=== PATIENT | male | born 1960 | race Caucasian/White ===

== ENCOUNTER 2017-08-07 08:18 | Inpatient (IN) ==
[2017-08-04 16:31] LABS: Appearance,Urine CLEAR; Bilirubin,Urine NEG (NEG); Color,Urine YELLOW; Glucose,Urine (UA) NEGATIVE (NEG); Leukocyte Esterase,Urine NEG /uL (NEG); Protein,Urine NEG (NEG); Specific Gravity,Urine 1.023 (1.000-1.035); Urine Blood NEG mg/dL (<0.03); Urobilinogen,Urine NEG (NEG)
[2017-08-04 17:22] LABS: Basophils # (Auto) 0 K/mcL (0.0-0.3); Basophils % (Auto) 0.4 % (0.0-2.0); Blood Urea Nitrogen 18 mg/dl (6-20); Eosinophils # (Auto) 0.1 K/mcL (0.0-0.7); Granulocytes % (Auto) 61.5 % (38.0-78.0); Lymphocytes # (Auto) 1.8 K/mcL (1.5-4.8); Lymphocytes % (Auto) 28.3 % (15.5-49.0); Mean Cell Volume 90.8 fL (80.0-100.0); Mean Corpuscular HGB Conc 34.1 g/dL (31.0-36.0); Mean Corpuscular Hemoglobin 30.9 pg (26.0-34.0); Monocytes # (Auto) 0.5 K/mcL (0.1-0.9); Monocytes % (Auto) 7.8 % (1.0-12.0); Platelet Count 221 K/mcL (140-440); RBC 4.88 M/mcL (4.50-5.90); Red Cell Distribution Width 13.6 % (11.5-14.5)
[~2017-08-07 08:18] MED LIST: CELECOXIB 200 MG CAPSULE PO SCH; IPRATROPIUM/ALBUTEROL 3 ML AMPUL.NEB NEB PRN; PREGABALIN 75 MG CAPSULE PO SCH; SCOPOLAMINE 1 PATCH PATCH TOPICAL PRN; ceFAZolin 1 GM VIAL IV SCH; oxyCODONE 10 MG TAB.ER.12H PO SCH
[2017-08-07] MEDS ORDERED: KETAMINE 10 MG/ML ML ONE (12:24)
[2017-08-07] MEDS ORDERED: LIDOCAINE HCL/PF 100 MG/5 ML SYRINGE IV ONE (12:24)
[2017-08-07] MEDS ORDERED: MIDAZOLAM 5 MG/5 ML VIAL ONE (12:24)
[2017-08-07] MEDS ORDERED: KETOROLAC 30 MG/ML VIAL ONE (12:24)
[2017-08-07] MEDS ORDERED: ePHEDrine 50 MG/ML AMPUL IV ONE (12:24)
[2017-08-07] MEDS ORDERED: GLYCOPYRROLATE 0.2 MG/ML VIAL IV ONE (12:24)
[2017-08-07] MEDS ORDERED: DEXAMETHASONE 10 MG/ML VIAL ONE (12:24)
[2017-08-07] MEDS ORDERED: ONDANSETRON 4 MG/2 ML VIAL ONE (12:24)
[2017-08-07] MEDS ORDERED: PROPOFOL 200 MG/20 ML VIAL IV ONE (12:24)
[2017-08-07] MEDS ORDERED: PHENYLEPHRINE 10 MG/ML VIAL ONE (12:24)
[2017-08-07] MEDS ORDERED: KETOROLAC 30 MG, ROPIVACAINE HCL/PF 49.5 ML, EPINEPHrine 0.5 MG, 0.9 % SODIUM CHLORIDE ... IJ ONE (12:43)
[2017-08-07] MEDS ORDERED: GENTAMICIN SULFATE 800 MG/20 ML VIAL IR ONE (12:57)
[2017-08-07] MEDS ORDERED: METHOCARBAMOL 1,000 MG/10 ML VIAL IV PRN (13:07)
[2017-08-07] MEDS ORDERED: FLUMAZENIL 0.1 MG/ML ML IV PRN (13:07)
[2017-08-07] MEDS ORDERED: fentaNYL 100 MCG/2 ML VIAL IV PRN (13:07)
[2017-08-07] MEDS ORDERED: MEPERIDINE 25 MG/ML SYRINGE IV PRN (13:07)
[2017-08-07] MEDS ORDERED: LACTATED RINGERS 250 ML IV PRN (13:07)
[2017-08-07] MEDS ORDERED: IPRATROPIUM/ALBUTEROL 3 ML AMPUL.NEB NEB PRN (13:07)
[2017-08-07] MEDS ORDERED: ONDANSETRON 4 MG/2 ML VIAL IV PRN ×2 (13:07→13:58)
[2017-08-07] MEDS ORDERED: NALOXONE HCL 0.4 MG/ML VIAL IV PRN (13:07)
[2017-08-07] MEDS ORDERED: BENZOCAINE/MENTHOL 1 LOZENGE PO PRN ×2 (13:07→13:58)
[2017-08-07] MEDS ORDERED: ACETAMINOPHEN 1,000 MG/100 ML BOTTLE IV ONE (13:07)
[2017-08-07] MEDS ORDERED: LACTATED RINGERS 1,000 ML IV SCH (13:15)
[2017-08-07] MEDS ORDERED: traMADol 50 MG TABLET PO PRN (13:57)
--- NOTE | 2017-08-07 13:57 | Brief Operative Note ---
Date of procedure: 08/07/17 Pre-op diagnosis: right knee instability s/p tka Post-op diagnosis: same Procedure: right knee debridement, polyethylene liner exchange Grafts/Implants: Yes Anesthesia: spinal Complications: none Surgeon: Duke Daigle Spragger: Jessenia Meeks Tourniquet Time (Minutes): 43 Specimens Removed/Pathology: none sent Condition: stable Disposition: PACU
[2017-08-07] MEDS ORDERED: BISACODYL 10 MG SUPP.RECT PR PRN (13:58)
[2017-08-07] MEDS ORDERED: POLYETHYLENE GLYCOL 3350 17 GM PACKET PO PRN (13:58)
[2017-08-07] MEDS ORDERED: FLEETS ADULT ENEMA PR PRN (13:58)
[2017-08-07] MEDS ORDERED: ONDANSETRON ODT 4 MG TABLET SL PRN (13:58)
[2017-08-07] MEDS ORDERED: MAGNESIUM HYDROXIDE 30 ML ORAL.SUSP PO PRN (13:58)
[2017-08-07] MEDS ORDERED: TRANEXAMIC ACID 1,000 MG/10 ML VIAL IV SCH (13:58)
[2017-08-07] MEDS: oxyCODONE/APAP 5/325MG TABLET PO PRN ×2 (16:39→21:03)
[2017-08-07] MEDS: METHOCARBAMOL 750 MG TABLET PO PRN ×2 (16:39→23:27)
[2017-08-07] MEDS: 0.9 % SODIUM CHLORIDE 1,000 ML IV SCH ×2 (17:05→17:54)
[2017-08-07] MEDS: 0.9 % SODIUM CHLORIDE 10 ML SYRINGE IV SCH ×2 (17:05→21:14)
[2017-08-07] MEDS: KETOROLAC 30 MG/ML VIAL IV SCH (17:55)
[2017-08-07] MEDS ORDERED: SENNOSIDES 1 TABLET PO SCH (21:00)
[2017-08-07] MEDS: DOCUSATE SODIUM 100 MG CAPSULE PO SCH (21:03)
[2017-08-07] MEDS: ASPIRIN 325 MG ENTERIC COATED TABLET PO SCH (21:03)
[2017-08-07] MEDS: ceFAZolin 1 GM VIAL IV SCH (21:09)
[2017-08-08] MEDS: KETOROLAC 30 MG/ML VIAL IV SCH ×3 (00:02→11:10)
[2017-08-08] MEDS: 0.9 % SODIUM CHLORIDE 1,000 ML IV SCH ×2 (01:50→06:02)
[2017-08-08] MEDS: oxyCODONE/APAP 5/325MG TABLET PO PRN ×2 (01:54→07:50)
[2017-08-08] MEDS: ceFAZolin 1 GM VIAL IV SCH (03:22)
[2017-08-08] MEDS: 0.9 % SODIUM CHLORIDE 10 ML SYRINGE IV SCH (06:01)
[2017-08-08] MEDS: METHOCARBAMOL 750 MG TABLET PO PRN (06:24)
--- NOTE | 2017-08-08 07:13 | Discharge Summary ---
Providers - Providers Patient information: Note initiated : 08/08/17 at 7:11 am Service Date, if different from initiated Date: [] Patient: Eh Flores 56 y/o M admitted on 08/07/17 for Knee Liner Exchange Poss Revision components. Chief Complaint: [POD #1 s/p right polyliner exchange Patient doing well this morning, reports mild knee pain. Ambulated okay. Denies CP, SOB, numbness, tingling or calf pain. Has no questions or concerns.] Discharge date: 08/08/17 Hospitalization Hospital course: Patient brought to OR yesterday for polyliner exchange of right knee without complication. He was admitted overnight for observation and pain control. His stay was without event. He will d/c to home today and follow up in office in 10- 14 days for post op appointment. Discharge diagnosis: knee instability Exam - Exam Incision healing: Yes Incision draining: No Incision red: No Incision swollen: No Incision inflamed: No Clean and dry: Yes Weight bearing status: as tolerated Range of motion: 0 deg ext/40 deg flex. Full ankle/feet AROM Ortho Discharge - TKA - Patient Instructions Diet: Regular Diet Activity: activity as tolerated, ambulate with assistive device, weight bearing as tolerated Total Knee Protocol: For Total Knee: Start ROM ISRAEL with stationary bike or rocking chair. Work on gaining full extension of knee. Posterior dislocation precautions provided. Hip abductor strengthening and gait training instructions provided. Apply Cryocuff as instructed. Dressing Care: Aquacel Ag - leave on for 5 days Additional Instructions: Do the exercises at home that physical therapy gave you. Weight bearing as tolerated. Activity as tolerated. Use your walker whenever you are up. Take your prescription, photo ID, insurance cards, and current medication list with you to your first physical therapy appointment. Wear comfortable clothing for your physical therapy. Consider premedicating with pain medication 45 minutes prior to physical therapy appointment. Take your prescription to machine pecan picker any medication or equipment (such as walker, crutches, toilet riser or C.P.M.) If you have Dermabond (a waterproof dressing with a mesh-like appearance), leave open to air. You may start showering on post op day #2, which is Monday, August 09. The Dermabond dressing can get wet, do not scrub dressing. Do not use soap, lotions , or creams over the top of the dressing. Do not soak in tub or spa. Pat dry. To avoid constipation while taking any narcotic pain medication, take an over the counter stool softener/laxative. Use your Cryocuff or ice packs as directed, on for 20 minutes at a time throughout the day. This and elevation will help with pain and swelling. Call your physician for fevers above 100.5 or pain not controlled by medication. Your prescriptions are with your discharge information. Some medications were electronically transmitted to your pharmacy of choice. - Follow Up Plan Follow Up Appointments: Duke Daigle MD [Physician] - Disposition: Home, Self-Care Prognosis: Fair Rehab Potential: Fair Overall status at discharge: patient is progressing back to baseline - Orders For Discharge Prescriptions: Aspirin [Ecotrin] 325 mg PO DAILY #14 tab.ec oxyCODONE/APAP [Percocet 5-325 mg] 1 - 2 tab PO Q4HP PRN #60 tab PRN Reason: Pain Level 3-6 Additional Discharge Orders: Physical Therapy at Discharge - TKA Location: Determined By Patient Walker Location: Determined By Patient Pending Studies Resuscitation Status Full Code Diet Regular Diet Start Mon 16 Dinner Aspirin (Ecotrin) 325 mg PO BID [facility] Last Admin: 08/07/17 21:03 Dose: 325 mg Docusate Sodium (Colace) 100 mg PO BID [facility] Last Admin: 08/07/17 21:03 Dose: 100 mg Sodium Chloride (Sodium Chloride 0.9%) 1,000 mls @ 125 mls/hr IV .Q8H [facility] Last Infusion: 08/08/17 06:44 Dose: 0 mls/hr Admin: 08/08/17 06:02 Dose: Admin: 08/08/17 01:50 Dose: 125 mls/hr Infusion: 08/08/17 01:50 Dose: 125 mls/hr Admin: 08/07/17 17:54 Dose: 125 mls/hr Admin: 08/07/17 17:05 Dose: Not Given Ketorolac Tromethamine (Toradol) 30 mg IV Q6 [facility] Stop: 08/09/17 12:01 Last Admin: 08/08/17 05:41 Dose: 30 mg Admin: 08/08/17 00:02 Dose: 30 mg Admin: 08/07/17 17:55 Dose: 30 mg Methocarbamol (Robaxin) 750 mg PO Q6HP PRN PRN Reason: Muscle Spasm Last Admin: 08/08/17 06:24 Dose: 750 mg Admin: 08/07/17 23:27 Dose: 750 mg Admin: 08/07/17 16:39 Dose: 750 mg Morphine Sulfate (Morphine) 0 mg IV Q1HP PRN PRN Reason: PAIN LEVEL > 6 Last Admin: 08/08/17 03:22 Dose: 4 mg Admin: 08/07/17 23:27 Dose: 4 mg Admin: 08/07/17 22:05 Dose: 4 mg Admin: 08/07/17 16:00 Dose: 4 mg Oxycodone/Acetaminophen (Percocet 5-325 Mg) 0 tab PO Q4HP PRN PRN Reason: PAIN LEVEL 3-6 Last Admin: 08/08/17 01:54 Dose: 2 tab Admin: 08/07/17 21:03 Dose: 2 tab Admin: 08/07/17 16:39 Dose: 2 tab Senna (Senokot) 2 tab PO HS JAXON Last Admin: 08/07/17 21:03 Dose: 2 tab Sodium Chloride (Saline Flush) 10 ml IV Q8 JAXON Last Admin: 08/08/17 06:01 Dose: 10 ml Admin: 08/07/17 21:14 Dose: Not Given Admin: 08/07/17 17:05 Dose: Not Given Shift Summary 08/08/17 04:35 Shift Summary by Shailesh Quiroz Pt has rested on & off tonight. Seng wrap Rt knee - C,D,I. IV LT F/A w/ NS infusing @ 125ml/hr. He is voiding QS per urinal - last PVR @ 2100 was 88ml - no further PVR scans needed. His pain has been mod well controlled w/ scheduled IV Toradol 30mg, and Percocet (2) PO - PO Percocet last given @ 0140. PO Robaxin last given @ 2330. CPM was on 0-45 for almost 2hrs mid shift. He has been up AMB out in [place] 400', as well as to & from [facility] Cryo cuff on x1, then declined - stated the weight was too painful. He has also declined AV boots most of this shift - up AMB frequently. VS - WNL on R.A.. Pt is calm, pleasant, & cooperative. Initialized on 08/08/17 04:35 - END OF NOTE Exam Temp Pulse Resp BP Pulse Ox 97.7 F 86 16 132/75 94 08/08/17 03:00 08/08/17 03:00 08/08/17 03:00 08/08/17 03:00 08/08/17 03:00 - Cardiovascular Peripheral pulses: 2+: dorsalis pedis (L), dorsalis pedis (R), posterior tibialis (L), posterior tibialis (R) - Neurologic Present: other (sensation grossly intact to light touch)
[2017-08-08] MEDS: DOCUSATE SODIUM 100 MG CAPSULE PO SCH (07:50)
[2017-08-08] MEDS: ASPIRIN 325 MG ENTERIC COATED TABLET PO SCH (07:50)
--- NOTE | 2017-08-08 08:49 | Operative Note ---
DATE OF OPERATION: 08/07/2017 PREOPERATIVE DIAGNOSIS: Right knee pain and instability, status post total knee arthroplasty. POSTOPERATIVE DIAGNOSIS: Right knee pain and instability, status post total knee arthroplasty. PROCEDURES: 1. Right revision total knee arthroplasty with liner exchange and exploration. 2. Right knee debridement of scar tissue. SURGEON: Dorothy Daigle M.D. SATELLITE DISH INSTALLER SURGEON: Jessenia Meeks PA-C ANESTHESIA: Spinal with LMA assist. ESTIMATED BLOOD LOSS: 100 mL COMPLICATIONS: None noted. SPECIMENS REMOVED: None. DRAINS: None. TOURNIQUET TIME: 46 minutes at 300 mmHg. IMPLANTS: Kwarteruy Attune tibial insert fixed bearing posterior stabilized size 8, 10 mm AOX. INDICATIONS: The patient has had a previous total knee arthroplasty and has done okay until recently when he developed increasing pain and has noticed some increased laxity in the knee. Radiographs look okay. There does not appear to be any loosening but he continues to have pain and we have ruled out infection but we elected to proceed with the above surgery. The risks and benefits were discussed with the patient in detail including, but not limited to, the risks of anesthesia, problems with the heart or lungs related to anesthesia, infection, compromise or injury to the nerves and blood vessels, deep venous thrombosis, pulmonary embolism, pneumonia, continued pain after surgery, worsening pain or symptoms after surgery, swelling, loss of motion, re-tear or failure of repair site, and need for repeat surgery. DESCRIPTION OF PROCEDURE: The patient was seen in the pre-anesthesia waiting room where all questions were answered and the correct side and site were identified and marked. The patient was transferred to the operating room and administered the anesthetic and given pre-operative antibiotics. A time-out was then called. The extremity was prepped and draped, exsanguinated, and the tourniquet was inflated to 300 mmHg. A midline skin incision was made and a standard medial parapatellar arthrotomy was performed. There was a significant amount of scar tissue throughout the knee and I completely excised all the scar tissue underneath the quadriceps tendon, which was thickened. After all this was removed, we removed the polyethylene. He did have some degree of instability both in varus and valgus as well as anterior drawer at 90 degrees indicating some laxity both in flexion and extension planes. We inspected the polyethylene, which was intact. We inspected both the femoral and tibial prosthesis. We used osteotomes and ___ punch to make sure there was no loosening and the implants were not loose. We thoroughly irrigated. We injected the posterior femur as well as the parapatellar region with 100 cubic cm volume including ropivacaine 49.25 cubic cm at 5 mg/cubic cm, ketorolac 30 mg and epinephrine 0.5 mg, 100 cubic cm total volume normal saline. We then trialed polyethylenes and we got the best fit with the best stability at size 8, 10 mm thickness AOX. The final implant was implanted. He had full extension and flexion, was stable at anterior drawer at 90 degrees and stable in varus valgus stress with no instability. We then thoroughly irrigated. We closed the medial parapatellar split with #2 Stratafix. We also used 0 Vicryl interrupted. The subcutaneous layer was closed in layers out to naeem on the skin. A sterile pressure dressing was applied. All needle and sponge counts were correct. He was transferred to the recovery room in stable condition. RAUL:jaren Job ID: [id number] Doc ID: [id number] Dorothy Daigle MD
== END 2017-08-08 11:25 | disposition home or self-care (01) | DRG 489 ==
LOC: MEDSUR 08:18
PROVIDERS: ADMIT Orthopaedic Surgery Sports Medicine; ATTEND Orthopaedic Surgery Sports Medicine

== ENCOUNTER 2018-08-15 11:35 | Inpatient (IN) ==
[2018-08-09 11:35] LABS: Appearance,Urine CLEAR; Bilirubin,Urine NEG (NEG); Color,Urine YELLOW; Glucose,Urine (UA) NEGATIVE (NEG); Leukocyte Esterase,Urine NEG /uL (NEG); Protein,Urine NEG (NEG); Specific Gravity,Urine 1.023 (1.000-1.035); Urine Blood NEG mg/dL (<0.03); Urobilinogen,Urine NEG (NEG)
[2018-08-09 11:56] LABS: Blood Urea Nitrogen 13 mg/dl (6-20)
[2018-08-09 12:03] LABS: Basophils # (Auto) 0 K/mcL (0.0-0.3); Basophils % (Auto) 0.7 % (0.0-2.0); Eosinophils # (Auto) 0.1 K/mcL (0.0-0.7); Eosinophils % (Auto) 1.2 % (0.0-7.0); Granulocytes % (Auto) 56.1 % (38.0-78.0); Lymphocytes # (Auto) 1.5 K/mcL (1.5-4.8); Lymphocytes % (Auto) 33.4 % (15.5-49.0); Mean Cell Volume 91.3 fL (80.0-100.0); Mean Corpuscular HGB Conc 32.8 g/dL (31.0-36.0); Monocytes # (Auto) 0.4 K/mcL (0.1-0.9); Monocytes % (Auto) 8.6 % (1.0-12.0); Platelet Count 225 K/mcL (140-440); RBC 4.94 M/mcL (4.50-5.90); Red Cell Distribution Width 13.5 % (11.5-14.5)
[~2018-08-15 11:35] MED LIST changes: +0.9 % SODIUM CHLORIDE 9 ML, KETOROLAC 30 MG, ROPIVACAINE HCL/PF 49.5 ML, EPINEPHrine 0.... IJ SCH; -IPRATROPIUM/ALBUTEROL 3 ML AMPUL.NEB NEB PRN; +ROPIVACAINE HCL/PF 20 ML VIAL IJ ONE; -SCOPOLAMINE 1 PATCH PATCH TOPICAL PRN; -ceFAZolin 1 GM VIAL IV SCH; +ceFAZolin 3 GM in DEXTROSE 5% IN WATER 50 ML IV SCH
[2018-08-15] MEDS ORDERED: GENTAMICIN SULFATE 800 MG/20 ML VIAL IR ONE (14:44)
[2018-08-15] MEDS ORDERED: MIDAZOLAM 5 MG/5 ML VIAL IV ONE (16:05)
[2018-08-15] MEDS ORDERED: LIDOCAINE HCL/PF 100 MG/5 ML SYRINGE IV ONE (16:05)
[2018-08-15] MEDS ORDERED: DEXAMETHASONE 10 MG/ML VIAL IV ONE (16:05)
[2018-08-15] MEDS ORDERED: PROPOFOL 200 MG/20 ML VIAL IV ONE (16:05)
[2018-08-15] MEDS ORDERED: ePHEDrine 50 MG/ML AMPUL IV ONE (16:05)
[2018-08-15] MEDS ORDERED: FLUMAZENIL 0.1 MG/ML ML IV PRN (18:09)
[2018-08-15] MEDS ORDERED: METHOCARBAMOL 1,000 MG/10 ML VIAL IV PRN (18:09)
[2018-08-15] MEDS ORDERED: LACTATED RINGERS 250 ML IV PRN (18:09)
[2018-08-15] MEDS ORDERED: IPRATROPIUM/ALBUTEROL 3 ML AMPUL.NEB NEB PRN (18:09)
[2018-08-15] MEDS ORDERED: PROMETHAZINE 25 MG/ML VIAL IM PRN (18:09)
[2018-08-15] MEDS ORDERED: MEPERIDINE 25 MG/ML SYRINGE IV PRN (18:09)
[2018-08-15] MEDS ORDERED: KETOROLAC 30 MG/ML VIAL IV PRN (18:09)
[2018-08-15] MEDS ORDERED: ACETAMINOPHEN 1,000 MG/100 ML BOTTLE IV ONE ×2 (18:09→18:46)
[2018-08-15] MEDS ORDERED: MEPERIDINE 50 MG/ML INJECTION IM PRN (18:09)
[2018-08-15] MEDS ORDERED: BENZOCAINE/MENTHOL 1 LOZENGE PO PRN ×2 (18:09→18:16)
[2018-08-15] MEDS ORDERED: NALOXONE HCL 0.4 MG/ML VIAL IV PRN (18:09)
[2018-08-15] MEDS ORDERED: ONDANSETRON 4 MG/2 ML VIAL IV PRN ×2 (18:09→18:16)
[2018-08-15] MEDS ORDERED: LACTATED RINGERS 1,000 ML IV SCH (18:15)
[2018-08-15] MEDS ORDERED: MAGNESIUM HYDROXIDE 30 ML ORAL.SUSP PO PRN (18:16)
[2018-08-15] MEDS ORDERED: ACETAMINOPHEN 325 MG TABLET PO PRN (18:16)
[2018-08-15] MEDS ORDERED: ONDANSETRON 4 MG ODT TABLET SL PRN (18:16)
[2018-08-15] MEDS ORDERED: FLEETS ADULT ENEMA PR PRN (18:16)
[2018-08-15] MEDS ORDERED: POLYETHYLENE GLYCOL 3350 17 GM PACKET PO PRN (18:16)
[2018-08-15] MEDS ORDERED: TRANEXAMIC ACID 1,000 MG/10 ML VIAL IV ONE ×2 (18:16→18:45)
[2018-08-15] MEDS ORDERED: BISACODYL 10 MG SUPP.RECT PR PRN (18:16)
--- NOTE | 2018-08-15 18:16 | Brief Operative Note ---
Date of procedure: 08/15/18 Pre-op diagnosis: right painful tka Post-op diagnosis: same Procedure: revision right tka tibial component Grafts/Implants: Yes Anesthesia: spinal Findings: no gross loosening, no evidence infection, clean baseplate post removal with osteotomes easier to separate on lateral side Complications: none Surgeon: Duke Daigle Parts Sales Associate: Jessenia Meeks Estimated blood loss (cc): 150 Tourniquet Time (Minutes): 56 Specimens Removed/Pathology: other (frozen x 3, cultures x 2) Condition: stable Disposition: PACU
[2018-08-15] MEDS ORDERED: fentaNYL 100 MCG/2 ML VIAL IV ONE (19:04)
[2018-08-15] MEDS: fentaNYL 100 MCG/2 ML VIAL IV PRN ×2 (19:04→19:13)
[2018-08-15] MEDS ORDERED: HYDROmorphone 2 MG/ML VIAL ONE ×2 (19:40→20:11)
[2018-08-15] MEDS ORDERED: oxyCODONE/APAP 5/325MG TABLET PO ONE (19:42)
[2018-08-15] MEDS: HYDROmorphone 2 MG/ML VIAL IV PRN ×3 (20:12→23:35)
[2018-08-15] MEDS: 0.9 % SODIUM CHLORIDE 1,000 ML IV SCH (20:12)
[2018-08-15] MEDS: METHOCARBAMOL 750 MG TABLET PO PRN (20:20)
[2018-08-15] MEDS: ceFAZolin 1 GM VIAL IV SCH (21:22)
[2018-08-15] MEDS: SENNOSIDES 1 TABLET PO SCH (21:56)
[2018-08-15] MEDS: DOCUSATE SODIUM 100 MG CAPSULE PO SCH (21:56)
[2018-08-15] MEDS: ASPIRIN 325 MG ENTERIC COATED TABLET PO SCH (21:56)
[2018-08-15] MEDS: 0.9 % SODIUM CHLORIDE 10 ML SYRINGE IV SCH (21:56)
[2018-08-15] MEDS: KETOROLAC 30 MG/ML VIAL IV SCH (23:35)
[2018-08-15] MEDS: oxyCODONE/APAP 5/325MG TABLET PO PRN (23:40)
[2018-08-16] MEDS: METHOCARBAMOL 750 MG TABLET PO PRN ×2 (01:45→19:23)
[2018-08-16] MEDS: HYDROmorphone 2 MG/ML VIAL IV PRN ×7 (01:45→22:15)
[2018-08-16] MEDS: 0.9 % SODIUM CHLORIDE 1,000 ML IV SCH ×3 (03:18→18:52)
[2018-08-16] MEDS: oxyCODONE/APAP 5/325MG TABLET PO PRN ×5 (03:30→23:51)
[2018-08-16] MEDS: ceFAZolin 1 GM VIAL IV SCH (03:32)
[2018-08-16] MEDS: KETOROLAC 30 MG/ML VIAL IV SCH ×4 (05:15→23:51)
[2018-08-16] MEDS: 0.9 % SODIUM CHLORIDE 10 ML SYRINGE IV SCH ×3 (05:16→20:14)
--- NOTE | 2018-08-16 07:07 | Orthopedic Progress Note ---
Subjective Patient information: Note initiated : 08/16/18 at 7:06 am Service Date, if different from initiated Date: [] Patient: Eh Flores 57 y/o M admitted on 08/15/18 for Right Total Knee Revision. Chief Complaint: [] Interval history: doing well. pain under control Objective Vital signs: Vital Signs Temp Pulse Resp BP Pulse Ox 08/16/18 02:49 98.7 F 87 12 112/65 96 08/15/18 22:29 97.7 F 93 H 14 126/84 97 08/15/18 21:29 90 100 08/15/18 20:57 88 147/85 96 08/15/18 20:27 83 130/92 91 08/15/18 20:13 83 128/82 92 08/15/18 20:00 96 08/15/18 19:58 81 123/78 95 08/15/18 19:42 83 129/90 92 08/15/18 19:29 96.4 F L 83 12 154/91 95 08/15/18 19:17 97.2 F 80 18 146/79 98 08/15/18 19:07 77 19 156/77 95 08/15/18 18:57 93 H 20 145/81 95 08/15/18 18:47 80 17 131/75 96 08/15/18 18:42 73 18 139/74 97 08/15/18 18:37 74 14 134/74 97 08/15/18 18:32 97.4 F 73 20 130/68 97 08/15/18 16:00 98.0 F 78 16 132/72 96 08/15/18 12:26 97.1 F 80 16 145/90 96 Intake and Output 08/15/18 08/16/18 08/16/18 21:59 05:59 13:59 Intake Total 2140 2900 Output Total 1100 375 Balance 1040 2525 Intake: IV 1000 Sodium Chloride 0.9% 1,000 ml @ 1000 125 mls/hr IV .Q8H [facility] Rx#: [id number] Oral 240 1900 IV - Manual Only 1900 Output: Void Amount 1050 375 Estimated Blood Loss 50 Other: Meal Dinner Percent of Meal Consumed 100% Feeding Ability Independent Urine Appearance Clear Clear Urine Color Bright Yellow Bright Yellow Urine Odor Normal Weight 280 lb Intake & Output: Intake & Output 08/15/18 08/16/1808/16/19 21:59 05:59 13:59 Intake Total 2140 2900 Output Total 1100 375 Balance 1040 2525 Weight 280 lb Intake: IV 1000 Sodium Chloride 0.9% 1,000 ml @ 1000 125 mls/hr IV .Q8H [facility] Rx#: [id number] Oral 240 1900 IV - Manual Only 1900 Output: Void Amount 1050 375 Estimated Blood Loss 50 Other: Meal Dinner Percent of Meal Consumed 100% Feeding Ability Independent Urine Appearance Clear Clear Urine Color Bright Yellow Bright Yellow Urine Odor Normal Incision: Yes healing Incision clean and dry: Yes Dressing: Yes clean, Yes dry, Yes intact Weight bearing status: full Neurological exam IM: Yes alert, Yes oriented X3, Yes motor sensory intact, Yes neurovascular intact Extremities exam IM: No calf tenderness, Yes Foot pink and warm, Yes neurovascular intact - Labs CBC & BMP: 08/16/18 04:50 08/09/18 09:22 Labs: Orthopedic Labs 08/09/18 09:22 PT 12.8 INR 1.0 08/16/18 08/09/18 04:50 09:23 Hgb 12.4 L 14.8 Hct 36.7 L 45.1 Assessment and Plan (1) S/P total knee arthroplasty pod 1 s/p revision tka wbat pain control dvt prophylaxis d/c planning - home tomorrow Status: Acute Qualifiers:
--- NOTE | 2018-08-16 07:09 | Discharge Summary ---
Ortho Discharge - TKA - Patient Instructions Diet: Regular Diet Activity: ambulate with assistive device, weight bearing as tolerated Total Knee Protocol: For Total Knee: Start ROM ISRAEL with stationary bike or rocking chair. Work on gaining full extension of knee. Posterior dislocation precautions provided. Hip abductor strengthening and gait training instructions provided. Apply Cryocuff as instructed. Dressing Care: May shower in 2 days - Problem Maintenance (1) S/P total knee arthroplasty Status: Acute Qualifiers: - Follow Up Plan Follow Up Appointments: Jessenia Meeks PA-C [Physician Marketing/Sales Person] - 08/29/18 1:40 pm Disposition: Home, Self-Care Prognosis: Good Rehab Potential: Good I certify that the patient requires SNF services: No Overall status at discharge: patient is progressing back to baseline
--- NOTE | 2018-08-16 07:33 | Operative Note ---
DATE OF OPERATION: 08/15/2018 PREOPERATIVE DIAGNOSIS: Painful right total knee arthroplasty. POSTOPERATIVE DIAGNOSIS: Painful right total knee arthroplasty. PROCEDURE: Right total knee arthroplasty revision of tibia component. SURGEON: Dorothy Daigle M.D. SOCIALLY RESPONSIBLE INVESTMENT ADVISER SURGEON: Jessenia Meeks PA-C ANESTHESIA: Spinal with LMA assist. ESTIMATED BLOOD LOSS: 100 mL COMPLICATIONS: None noted. SPECIMENS REMOVED: Frozen section x3, cultures x2. DRAINS: None. TOURNIQUET TIME: 54 minutes at 300 mmHg. IMPLANTS: DePuy Attune tibial insert rotating platform, posterior stabilized size 8, 10 mm AOX, DePuy Attune revision tibial sleeve, Porocoat fully coated 45 mm, DePuy Attune revision tibial based rotating platform size 8 cemented, DePuy Attune revision Pressfit stem 22 x 60, DePuy CMW2 gentamycin bone cement 20 grams x2. INDICATIONS: The patient had a previous total knee arthroplasty. He has gone on to have pain afterwards and had a secondary surgery with a liner exchange as well as removal of scar tissue. He continues to have pain. We have taken multiple aspirations and found no evidence of infection. We have done multiple studies and had a second opinion, and have been unable to find the source of his pain. He continues to have pain, however. It is not improving, so it was felt that a potential revision surgery would be his best option as his pain seems to be more around the tibia at this point. The risks and benefits were discussed with the patient in detail including, but not limited to, the risks of anesthesia, problems with the heart or lungs related to anesthesia, infection, compromise or injury to the nerves and blood vessels, deep venous thrombosis, pulmonary embolism, pneumonia, continued pain after surgery, worsening pain or symptoms after surgery, swelling, loss of motion, instability, leg length discrepancy, and need for repeat surgery. DESCRIPTION OF PROCEDURE: The patient was seen in the pre-anesthesia waiting room where all questions were answered and the correct side and site were identified and marked. The patient was transferred to the operating room and administered the anesthetic and pre-operative antibiotics were held. A timeout was then called. The extremity was prepped and draped, exsanguinated, and the tourniquet was inflated to 300 mmHg. A midline skin incision was then made and a standard medial parapatellar arthrotomy was performed. Bone windows were created medially and laterally. We dissected down and found to have a large amount of scar tissue underneath the quadriceps and patellar tendon. I excised all the scar tissue and one sample of scar tissue from the infrapatellar fat pad for frozen section. We also cultured. There is a moderate amount of normal-appearing synovial fluid. We then flexed the knee up to remove any scar tissue. We then turned our attention to the femur. I inspected the femur in its entirety. The position of the femur was appropriate with version and flexion. I then used a drift punch and I punched from the anterior proximal aspect medial and lateral with significant force and found to have no loosening of the femoral component. There were no abnormalities in this area so I felt that I would leave the femoral component intact. I then came to the tibial component. I placed retractors for visualization. I made a window on the lateral aspect of the patellar tendon and was able to come down on the lateral side. I again used a drift punch malleted around, punching, and there was no gross loosening of the component. However, he has pain in this region so I felt that we should revise the tibia in this case. I used a combination of flexible and rigid osteotomes and osteotomed around the component along the medial side. I then did this to the window along the lateral side. It seemed to be easier to break through along the lateral side. When I was able to osteotome along the lateral side, it released from the cement mantle easily. I was able to use the drift punch this time and bring the tibial component out. There is no significant cement attached to the tibial faceplate that came out relatively clean. There is a lipid layer around the component and the intramedullary bone. Then I sequentially removed all of the bone from the tibia with osteotome and curets. Once all the cement was removed, I elected to proceed with a Porocoat sleeve to improve the fixation of the tibial component. I first reamed and then placed the trial component with the Pressfit stem and the sleeve. I trialed with a 10 mm polyethylene size 8, which gave excellent stability and flexion and extension, anterior and posterior drawer as well as varus and valgus stress. I took him through range of motion and there was good stability and tracking of the patella. I then removed the trial components. We thoroughly irrigated. We removed all of the fluid and high lipid content that we found around the bone and irrigated. I then assembled the tibial components on the back table and then we cemented in a standard fashion. Once this was done we placed the polyethylene liner. I again took the knee through range of motion. There is excellent stability and motion. Irrigation with 3 liters of antibiotic saline was then performed using jet-lavage. We let the tourniquet down and coagulated bleeding vessels. We injected a 100 cubic centimeter volume including Ropivacaine 49.25 cubic centimeters at 5 milligrams per cubic centimeter, Ketorolac 30 milligrams, and Epinephrine 0.5 milligrams into 100 cubic centimeters volume of normal saline. We closed the retinaculum with #2 Stratafix and 0 Vicryl. We closed the subcutaneous tissue and skin in layers out to Dermabond on the skin. A sterile pressure dressing was applied. All needle and sponge counts were correct. The patient was transferred to the recovery room in stable condition. JLora:jaren Job ID: [id number] Doc ID: [id number] Dorothy BROCK
--- NOTE | 2018-08-16 07:49 | XRay Report ---
HISTORY: Vision of the right knee prosthesis FINDINGS: There is a well positioned total knee prosthesis. The tibial component has been replaced since prior exam done on 01/17/18. The new prosthetic tibial component has a longer intramedullary mary. There are multiple flecks of metallic foreign bodies around the knee. Most of them are located anteriorly and inferior to the patella. There is a fragmented large spur arising from the inferior border of the patella. The metallic foreign bodies and fragmentation of the osteophyte are unchanged from the prior exam. No new fracture is present. There is a large amount of fluid in the joint and air surrounding the joint. The femoral and patellar components of prosthesis appear normal and unchanged from prior exam. IMPRESSION: Good alignment following revision of the right knee prosthesis Interpreted and Authenticated by: Eh Grover 08/16/18
[2018-08-16] MEDS: ASPIRIN 325 MG ENTERIC COATED TABLET PO SCH ×2 (08:05→20:13)
[2018-08-16] MEDS: DOCUSATE SODIUM 100 MG CAPSULE PO SCH ×2 (08:05→20:13)
[2018-08-16] MEDS: SENNOSIDES 1 TABLET PO SCH (20:13)
[2018-08-17] MEDS: HYDROmorphone 2 MG/ML VIAL IV PRN ×3 (00:48→05:57)
[2018-08-17] MEDS: METHOCARBAMOL 750 MG TABLET PO PRN ×2 (01:46→10:53)
[2018-08-17] MEDS: 0.9 % SODIUM CHLORIDE 1,000 ML IV SCH (02:39)
[2018-08-17] MEDS: oxyCODONE/APAP 5/325MG TABLET PO PRN ×2 (04:06→09:01)
[2018-08-17] MEDS: KETOROLAC 30 MG/ML VIAL IV SCH (05:58)
[2018-08-17] MEDS: 0.9 % SODIUM CHLORIDE 10 ML SYRINGE IV SCH (05:58)
--- NOTE | 2018-08-17 07:30 | Discharge Summary ---
Providers - Providers Patient information: Note initiated : 08/17/18 at 7:28 am Service Date, if different from initiated Date: [] Patient: Eh Flores 57 y/o M admitted on 08/15/18 for Right Total Knee Revision. Chief Complaint: [POD #2 s/p right total knee revision Doing okay. Reports pain to be quite severe at times. Is ambulating okay. Denies CP, SOB, numbness, tingling, calf pain.] Discharge date: 08/17/18 Hospitalization Hospital course: Patient was brought to OR on 08/15/18 for right TKA revision. He was admitted for two night to floor for post op care. He will d/c to home today and follow up in office in 10-14 days for PO care. Discharge diagnosis: failed knee arthroplasty Exam - Exam Incision healing: Yes Incision draining: No Incision red: No Incision swollen: No Incision inflamed: No Clean and dry: Yes Weight bearing status: as tolerated Range of motion: full foot and ankle Ortho Discharge - TKA - Patient Instructions Diet: Regular Diet Activity: ambulate with assistive device, weight bearing as tolerated Total Knee Protocol: For Total Knee: Start ROM [place] with stationary bike or rocking chair. Work on gaining full extension of knee. Posterior dislocation precautions provided. Hip abductor strengthening and gait training instructions provided. Apply Cryocuff as instructed. Patient Education: Oxycodone/Acetaminophen (By mouth), Aspirin (By mouth), Total Knee Replacement (DC), Revision Total Joint Arthroplasty (DC) Additional Instructions: Discharge Instructions: Do the exercises at home that physical therapy gave you throughout the day. Weight bearing as tolerated. Wear comfortable clothing for physical therapy. You are scheduled to start physical therapy at [facility] ([phone]) on August 20 at 7:30 am, please arrive 15 minutes early for paperwork. Take your prescription, photo ID, insurance cards, and current medication list with you to your first physical therapy appointment. Take your prescription to continuous pickling line pickler any medication. You have Dermabond (a dressing with a mesh-like appearance), DO NOT remove mesh. Cover site daily with gauze dressing. You may start showering on post op day #2. The Dermabond dressing can get wet, do not scrub dressing. Pat dry, then place new dressing (above). To avoid constipation while taking any narcotic pain medication, take an over the counter stool softener/laxative. Use your Cryocuff or ice packs as directed, on for 20 minutes at a time throughout the day. This and elevation will help with pain and swelling. Call your physician for fevers above 100.5 or pain not controlled by medication. Your prescriptions are with your discharge information. Some medications were electronically transmitted to your pharmacy of choice. Take Aspirin twice daily, for 30 days, as prescribed to prevent blood clots (see medication list). - Follow Up Plan Follow Up Appointments: Jessenia Meeks PA-C [Physician Program Director/Morning Show Host] - 08/29/18 1:40 pm Disposition: Home, Self-Care Prognosis: Good Rehab Potential: Good I certify that the patient requires SNF services: No Overall status at discharge: patient is progressing back to baseline - Orders For Discharge Prescriptions: Aspirin [Ecotrin] 325 mg PO BID #60 tab.ec Methocarbamol [Robaxin] 750 mg PO Q6HP PRN #45 tab PRN Reason: Muscle Spasm oxyCODONE/APAP [Percocet 5-325 mg] 1 - 2 tab PO Q4H PRN #60 tab PRN Reason: Pain Additional Discharge Orders: Physical Therapy at Discharge - TKA Location: None Selected Toilet Riser Discharge Order Location: None Selected Walker Location: None Selected Pending Studies Resuscitation Status Full Code Diet Regular Diet Start MonAug 15 1816 Aspirin (Ecotrin) 325 mg PO BID [facility] Last Admin: 08/16/18 20:13 Dose: 325 mg Documented by: Admin: 08/16/18 08:05 Dose: 325 mg Documented by: Admin: 08/15/18 21:56 Dose: 325 mg Documented by: STEPH Docusate Sodium (Colace) 100 mg PO BID [facility] Last Admin: 08/16/18 20:13 Dose: 100 mg Documented by: Admin: 08/16/18 08:05 Dose: 100 mg Documented by: Admin: 08/15/18 21:56 Dose: 100 mg Documented by: STEPH Hydromorphone HCl (Dilaudid) 0 mg IV Q2HP PRN PRN Reason: PAIN LEVEL > 6 Last Admin: 08/17/18 05:57 Dose: 2 mg Documented by: Admin: 08/17/18 04:07 Dose: 2 mg Documented by: Admin: 08/17/18 00:48 Dose: 2 mg Documented by: Admin: 08/16/18 22:15 Dose: 2 mg Documented by: Admin: 08/16/18 20:12 Dose: 2 mg Documented by: Admin: 08/16/18 18:19 Dose: 2 mg Documented by: Admin: 08/16/18 10:19 Dose: 2 mg Documented by: Admin: 08/16/18 05:15 Dose: 2 mg Documented by: Admin: 08/16/18 03:31 Dose: 2 mg Documented by: Admin: 08/16/18 01:45 Dose: 2 mg Documented by: Admin: 08/15/18 23:35 Dose: 2 mg Documented by: Admin: 08/15/18 21:57 Dose: 2 mg Documented by: Admin: 08/15/18 20:12 Dose: 1 mg Documented by: STEPH Sodium Chloride (Sodium Chloride 0.9%) 1,000 mls @ 125 mls/hr IV .Q8H [facility] Last Admin: 08/17/18 02:39 Dose: Not Given Documented by: Admin: 08/16/18 18:52 Dose: Not Given Documented by: Admin: 08/16/18 10:47 Dose: Not Given Documented by: Infusion: 08/16/18 03:57 Dose: 0 mls/hr Documented by: Admin: 08/16/18 03:18 Dose: Not Given Documented by: Admin: 08/15/18 20:12 Dose: 125 mls/hr Documented by: STEPH Ketorolac Tromethamine (Toradol) 30 mg IV Q6 [facility] Stop: 08/17/18 18:01 Last Admin: 08/17/18 05:58 Dose: 30 mg Documented by: Admin: 08/16/18 23:51 Dose: 30 mg Documented by: Admin: 08/16/18 18:14 Dose: 30 mg Documented by: Admin: 08/16/18 11:47 Dose: 30 mg Documented by: Admin: 08/16/18 05:15 Dose: 30 mg Documented by: Admin: 08/15/18 23:35 Dose: 30 mg Documented by: STEPH Methocarbamol (Robaxin) 750 mg PO Q6HP PRN PRN Reason: Muscle Spasm Last Admin: 08/17/18 01:46 Dose: 750 mg Documented by: Admin: 08/16/18 19:23 Dose: 750 mg Documented by: Admin: 08/16/18 01:45 Dose: 750 mg Documented by: Admin: 08/15/18 20:20 Dose: 750 mg Documented by: STEPH Oxycodone/Acetaminophen (Percocet 5-325 Mg) 0 tab PO Q4HP PRN PRN Reason: PAIN LEVEL 3-6 Last Admin: 08/17/18 04:06 Dose: 2 tab Documented by: Admin: 08/16/18 23:51 Dose: 2 tab Documented by: Admin: 08/16/18 19:23 Dose: 2 tab Documented by: Admin: 08/16/18 15:28 Dose: 2 tab Documented by: Admin: 08/16/18 07:58 Dose: 2 tab Documented by: Admin: 08/16/18 03:30 Dose: 2 tab Documented by: Admin: 08/15/18 23:40 Dose: 2 tab Documented by: STEPH Vickers (Senokot) 2 tab PO HS [facility] Last Admin: 08/16/18 20:13 Dose: 2 tab Documented by: Admin: 08/15/18 21:56 Dose: 2 tab Documented by: STEPH Sodium Chloride (Saline Flush) 10 ml IV Q8 [facility] Last Admin: 08/17/18 05:58 Dose: 10 ml Documented by: Admin: 08/16/18 20:14 Dose: 10 ml Documented by: Admin: 08/16/18 15:29 Dose: 10 ml Documented by: Admin: 08/16/18 05:16 Dose: 10 ml Documented by: Admin: 08/15/18 21:56 Dose: Not Given Documented by: STEPH Shift Summary 08/17/18 04:57 Shift Summary by Amarilys Mo Admitted after R total knee revision. Has had 4 R knee surgeries in 2 years. A&O x4, pleasant and cooperative with cares. Pain control continues to be a challenge, requiring 2 mg Dilaudid Q2H, 2 tabs Percocet Q4H, and 750 mg Robaxin Q6H to keep pain tolerable. Ambulates with SBA and FWW to BR. Using Cryocuff frequently. Slept intermittently throughout night. PIV to L hand, SL. 3 BM in BR this shift, voiding per urinal. Bedside report to follow. Initialized on 08/17/18 04:57 - END OF NOTE
[2018-08-17] MEDS: ASPIRIN 325 MG ENTERIC COATED TABLET PO SCH (08:33)
[2018-08-17] MEDS: DOCUSATE SODIUM 100 MG CAPSULE PO SCH (08:33)
--- NOTE | 2018-08-17 14:42 | Surgical Pathology Report ---
HISTOLOGY SPECIMEN MICROSCOPIC DIAGNOSIS SPECIMEN A - RIGHT KNEE, PREPATELLAR FAT PAD, EXCISION: -- FIBROFATTY SOFT TISSUE WITH MILD CHRONIC INFLAMMATION. -- NO SIGNIFICANT ACUTE INFLAMMATION, LESS THAN 1 NEUTROPHIL/hpf. SPECIMEN B - RIGHT KNEE, FEMUR, EXCISION: -- FIBROFATTY SOFT TISSUE WITH MILD CHRONIC INFLAMMATION. -- NO SIGNIFICANT ACUTE INFLAMMATION, LESS THAN 1 NEUTROPHIL/hpf. SPECIMEN C - RIGHT KNEE, TIBIA, BIOPSY: -- FRAGMENTS OF BONE AND FIBROUS TISSUE WITH MILD CHRONIC INFLAMMATION. -- NO SIGNIFICANT ACUTE INFLAMMATION, LESS THAN 1 NEUTROPHIL/hpf. (EBD:sln) INTRAOPERATIVE CONSULTATION FROZEN SECTION DIAGNOSES ([facility] [place], [place]) FSA - RIGHT PREPATELLAR FAT PAD, EXCISION WITH FROZEN SECTION: -- NO SIGNIFICANT ACUTE INFLAMMATION, LESS THAN 1 NEUTROPHIL/hpf. FSB - FEMUR, RIGHT KNEE, EXCISION WITH FROZEN SECTION: -- NO SIGNIFICANT ACUTE INFLAMMATION, LESS THAN 1 NEUTROPHIL/hpf. FSC - TIBIA, RIGHT KNEE, EXCISION WITH FROZEN SECTION: -- NO SIGNIFICANT ACUTE INFLAMMATION, LESS THAN 1 NEUTROPHIL/hpf. (EBD:sln) PROCEDURAL IMPRESSION Right total knee revision. GROSS DESCRIPTION Specimen A: Received fresh labeled prepatellar fat pad, is a 4.3 x 3 x 1 cm urena-pink fatty and fibrous soft tissue fragment. The specimen is serially sectioned and the sales representative health insurance section used for frozen section. The remainder of the specimen is submitted for permanent section. Specimen B: Received fresh labeled right femur knee, is a 3.9 x 3.1 x 1 cm urena-red fatty and fibrous soft tissue fragment. The specimen is serially sectioned and sales representative health insurance section used for frozen section. The remainder of the specimen is submitted for permanent section. Specimen C: Received fresh labeled tibia right knee, are multiple fragments of urena-red firm tissue with an aggregate measurement of 2.0 x 1.5 x 0 cm. Layer Off sections are submitted for frozen section. The remainder of the specimen is submitted for permanent. (EBD:armand) Electronically Signed by: Grazyna Allen M.D.
== END 2018-08-17 11:12 | disposition home or self-care (01) | DRG 468 ==
LOC: MEDSUR 12:26
PROVIDERS: ADMIT Orthopaedic Surgery Sports Medicine; ATTEND Orthopaedic Surgery Sports Medicine